=== PATIENT | male | born 1945 | race Caucasian/White ===

== ENCOUNTER 2023-05-06 04:54 | Emergency (ER) | payer OTHER, MEDICAID ==
[~2023-05-06] VITALS: Ht 172.7 cm; Wt 91.0 kg
[2023-05-06 04:57] VITALS: O2SAT 100
[2023-05-06 05:49] LABS: BASOPHILS % 0.9 % (0.0-2.0); HEMATOCRIT. 44.6 % (42.0-52.0); HEMOGLOBIN. 14.9 g/dL (14.0-18.0); LYMPHOCYTES % 21.1 % (20.0-50.0); MEAN CORPUSCULAR HEMOGLOBIN 28.6 pg (28.0-32.0); MEAN CORPUSCULAR HGB CONC 33.5 g/dL (31.0-37.0); MEAN CORPUSCULAR VOLUME 85.5 fL (80.0-94.0); MEAN PLATELET VOLUME 8.2 fl (7.4-10.4); MONOCYTES % 11.5 % (2.0-8.0); NEUTROPHILS % 61.5 % (40.0-76.0); PLATELET 148 x1000/uL (130-400); RED BLOOD CELL COUNT 5.21 mill/uL (4.7-6.1); RED CELL DISTRIBUTION WIDTH 14.9 % (11.6-14.6); WHITE BLOOD COUNT 5.6 x1000/uL (4.5-11.0)
[2023-05-06 06:05] LABS: INR 1.2; PARTIAL THROMBOPLASTIN TIME 44.9 sec (23.4-31.0); PROTHROMBIN TIME 12.7 sec (9.6-11.0)
[2023-05-06 08:20] VITALS: BP 150/99; PULSE 81; RESP 12; TEMP 98.2
== END 2023-05-06 08:21 | disposition home or self-care (01) ==
LOC: ER 04:54 → EDBD 04:54 → ER 08:21
DX: R04.0 Epistaxis (principal)
CPT/HCPCS: 36415; 85025; 99283